=== PATIENT | male | born 1970 | race Caucasian/White ===

== ENCOUNTER 2018-11-04 11:39 | Emergency (ER) | payer OTHER ==
[~2018-11-04] VITALS: Ht 180.3 cm; Wt 113.6 kg
--- NOTE | 2018-11-04 11:41 | NUR ---
ARRIVED TO ER #8 PER EMS WITH C/O FACIAL NUMBNESS AND VISUAL NARROWING FOR THE PAST 100 MINUTES, INTERMITTENTLY. ALERT AND ORIENTED UPON ARRIVAL. DENIES PAIN OR NUMBMESS AT THIS TIME. WHILE GETTING REPORT FROM EMS, DR. ALLEN STATED THAT HE WANTS TO ASSESS PATIENT PRIOR TO THE PATIENT GOING FOR CT SCAN. EKG AT THE BEDSIDE.
--- NOTE | 2018-11-04 11:43 | NUR ---
STROKE NURSE, KAROL AT THE BEDSIDE. DR. ALLEN AT THE BEDSIDE NOW.
--- NOTE | 2018-11-04 11:50 | NUR ---
TO CT SCAN PER ANTWAN, ON PORTABLE MONITOR, ACCOMPANIED BY STROKE NURSE AND GEAR CUTTING MACHINE SET UP OPERATOR.
[2018-11-04 12:24] LABS: CLARITY,URINE CLEAR (Clear); COLOR,URINE STRAW (Yellow); GLUCOSE, URINE NEGATIVE (Neg); KETONES,URINE NEGATIVE (Neg); LEUKOCYTE ESTERASE ,URINE NEGATIVE (Neg); NITRITES, URINE NEGATIVE (Neg); OCCULT BLOOD,URINE NEGATIVE (Neg); PH,URINE 5.5 (4.8-8.0); PROTEIN,URINE NEGATIVE (Neg); UROBILINOGEN,URINE 0.2 E.U/dL (0.2-1.0)
[2018-11-04 12:24] LABS: BASOPHILS % (AUTO) 0.6 % (0-1); EOSINOPHILS # (AUTO) 0.1 X10'3 (0-0.9); EOSINOPHILS % (AUTO) 2.2 % (0-6); HEMATOCRIT 48.6 % (42.0-52.0); HEMOGLOBIN 16.8 g/dl (14.0-17.9); LYMPHOCYTES # (AUTO) 1.3 X10'3 (1.1-4.8); MEAN CORPUSCULAR HEMOGLOBIN 30.4 PG (27.0-31.0); MEAN CORPUSCULAR HGB CONC 34.5 g/dL (33.0-36.5); MEAN CORPUSCULAR VOLUME 87.9 FL (78-98); MEAN PLATELET VOLUME 8.3 FL (7.4-10.4); MONOCYTES # (AUTO) 0.5 X10'3 (0-0.9); MONOCYTES % (AUTO) 10.5 % (2-12); NEUTROPHILS # (AUTO) 2.9 X10'3 (1.8-7.7); NEUTROPHILS % (AUTO) 60.7 % (42-75); PLATELET COUNT 206 X10'3 (140-440); RED BLOOD COUNT 5.53 X10'6 (4.70-6.10); WHITE BLOOD COUNT 4.8 X10'3 (4.5-11.0)
[2018-11-04 12:29] LABS: UA COLLECTION TYPE URINAL
[2018-11-04 12:33] LABS: PARTIAL THROMBOPLASTIN TIME 30 SECONDS (22-32); PROTHROMBIN TIME 10.2 SECONDS (9.0-12.0)
[2018-11-04 12:37] LABS: ALANINE AMINOTRANSFERASE 50 U/L (12-78); ALBUMIN 4.2 G/DL (3.4-5.0); ALBUMIN/GLOBULIN RATIO 1.1 (1.1-1.5); ALKALINE PHOSPHATASE 111 IU/L (46-116); ANION GAP 3 (8-16); ASPARTATE AMINO TRANSFERASE 27 U/L (10-37); BILIRUBIN,TOTAL 1.1 MG/DL (0.1-1.0); BLOOD UREA NITROGEN 15 MG/DL (7-18); BUN/CREATININE RATIO 11.1 (5.4-32.0); CALCIUM 9.2 MG/DL (8.5-10.1); CHLORIDE 106 MMOL/L (99-107); CREATININE 1.35 MG/DL (0.60-1.10); GLUCOSE 99 MG/DL (70-104); POTASSIUM 4.4 MMOL/L (3.5-5.1); SODIUM 139 MMOL/L (135-145); TOTAL CARBON DIOXIDE 29.6 MMOL/L (24-32); TOTAL PROTEIN 8.2 G/DL (6.4-8.2); eGFR 56 ML/MIN
--- NOTE | 2018-11-04 12:43 | NUR ---
PAGED FOR LEVEL 1 STROKE AT 1139 WITH ONSET AT 1015 THIS MORNING. PT SAID WHILE DRIVING TO [facility] FROM [place] HE EXPERIENCED TINGLING OVER BOTH SIDES OF HIS FACE AND LOWER EXT AT WHICH TIME HIS VISION BEGAN TO NARROW THOUGH HE WAS GOING TO PASS OUT. HE WAS ABLE TO PULL OFF THE ROAD AND CALL 911. HE HAS A H/O PANIC LIKE ATTACKS, BUT SAYS THIS WAS TOTALLY DIFFERENT. HIS EXAM FOR STROKE IS NEGATIVE. HIS SYMPTOMS HAVE RESOLVED. STROKE ALERT WAS CANCELED AT 1230.
[2018-11-04 12:45] LABS: MAGNESIUM 1.8 MG/DL (1.5-2.4)
--- NOTE | 2018-11-04 12:45 | NUR ---
DR. ALLEN CALLED OFF STROKE ALERT AFTER REVIEWING CT SCAN RESULTS.
[2018-11-04 13:47] VITALS: BP 105/64
== END 2018-11-04 13:48 | disposition home or self-care (01) ==
LOC: ER 11:39
DX: R42 Dizziness and giddiness (principal); Z90.49 Acquired absence of other specified parts of digestive tract; Z90.89 Acquired absence of other organs; Z88.1 Allergy status to other antibiotic agents
CPT/HCPCS: 36415; 70450; 71045; 80053; 81003; 83735; 84443; 85025; 85610; 85651; 85730; 93005; 99284